=== PATIENT | male | born 1950 | race Caucasian/White ===

== ENCOUNTER 2017-11-29 22:51 | Emergency (ER) | payer MEDICARE, MEDICAID ==
[2017-11-29] MEDS ORDERED: Albuterol/Ipratropium NEB.SOL* Albuterol 2.5 MG/Ipratropium 0.5 MG 3 ML INH ONE (23:07)
[2017-11-29 23:26] LABS: ABS Basophils 0.1 10^3/ul (0-0.2); ABS Eosinophils 0.2 10^3/ul (0-0.6); ABS Monocytes 0.8 10^3/ul (0-0.8); ABS Neutrophils 6.9 10^3/ul (1.5-7.7); ABS Nucleated RBC 0 10^3/ul; Hematocrit 40 % (42-52); Hemoglobin 13.9 g/dl (14.0-18.0); Mean Corpuscular HGB Conc 34 g/dl (31-36); Mean Corpuscular Hemoglobin 35 pg (27-31); Mean Corpuscular Volume 101 fL (80-94); Mean Platelet Volume 7.3 um3 (7.4-10.4); Nucleated Red Blood Cells % 0; Platelet Count 254 10^3/ul (150-450); Red Blood Count 4.02 10^6/ul (4.0-5.4); Red Cell Distribution Width 14 % (10.5-15)
[2017-11-29 23:37] LABS: INR 0.89 (0.77-1.02)
[2017-11-29] MEDS ORDERED: hydrALAZINE IV* 20 MG/ML VIAL IV SLOW PU ONE (23:41)
[2017-11-30] MEDS ORDERED: Levofloxacin TAB* 250 MG PO ONE (00:15)
[2017-11-30] MEDS ORDERED: methylPREDNISolone 125 MG* 2 ML VIAL IV ONE (00:15)
[2017-11-30] MEDS ORDERED: Ketorolac INJ* 30 MG/ML 1 ML VIAL IV PUSH ONE (01:02)
[2017-11-30] MEDS ORDERED: Albuterol 2.5 MG/3 ML NEB.SOL* (0.083%) ONE (01:11)
[2017-11-30] MEDS: Albuterol 2.5 MG/3 ML NEB.SOL* (0.083%) INH SCH ×2 (01:17→01:47)
[2017-11-30] MEDS ORDERED: Iohexol 300* (CONTRAST) 10 ML SDV IV ONE (01:51)
--- NOTE | 2017-11-30 02:59 | ED ---
Estuardo Louise Rebecca, scribed for Yoko Gutierres MD on 11/29/17 at 2308 . Back Pain - HPI Summary HPI Summary: Pt is a 67 y/o M BIBA who presents to ED c/o bilateral flank pain. Sx have been present for 3 days and is currently moderate, ranked 5/10. Sx aggravated and alleviated by nothing, unchanged by cough. Additionally c/o chronic cough. Denies fever. PMHx COPD. - History of Current Complaint Chief Complaint: EDFlankPain Stated Complaint: ABD PAIN Time Seen by Provider: 11/29/17 23:02 Hx Obtained From: Patient Onset/Duration: Lasting Days - 3 days, Still Present Back Pain Location: Is Discrete @ - Bilateral flank Severity Currently: Moderate Pain Intensity: 5 Pain Scale Used: 0-10 Numeric Aggravating Symptom(s): Nothing Alleviating Symptom(s): Nothing Associated Signs And Symptoms: Positive: Flank Pain - Bilateral - Allergies/Home Medications Allergies/Adverse Reactions: Allergies Allergy/AdvReac Type Severity Reaction Status Date / Time No Known Allergies Allergy Verified 04/16/15 13:51 Home Medications: Home Medications Fluticasone-Salmeterol 250-50* [Advair Diskus 250-50*] 1 puff INH BID 11/30/17 [ History Confirmed 11/30/17] Rosuvastatin Calcium [Rosuvastatin Calcium] 5 mg PO DAILY 11/30/17 [History Confirmed 11/30/17] PMH/Surg Hx/FS Hx/Imm Hx Endocrine/Hematology History: Denies: Hx Diabetes Cardiovascular History: Reports: Hx Angina, Other Cardiovascular Problems/ Disorders - SMALL AORTIC ANEURYSM Denies: Hx Hypertension Respiratory History: Reports: Hx Chronic Obstructive Pulmonary Disease (COPD) History: Denies: Hx Renal Disease - Surgical History Surgery Procedure, Year, and Place: Left sided inguinal hernia repair as a child Infectious Disease History: No Infectious Disease History: Denies: Traveled Outside the [place] in Last 30 Days - Family History Known Family History: Positive: Cardiac Disease, Other - Stroke - Social History Alcohol Use: Occasionally Substance Use Type: Reports: None Smoking Status (MU): Heavy Every Day Tobacco Smoker Type: Cigarettes Have You Smoked in the Last Year: Yes Review of Systems Negative: Fever Positive: Cough Positive: flank pain - Bilateral All Other Systems Reviewed And Are Negative: Yes Physical Exam - Summary Physical Exam Summary: VITAL SIGNS: Reviewed. GENERAL: ~Patient is a well-developed and nourished male who is lying comfortable in the stretcher. Patient is not in any acute respiratory distress. HEAD AND FACE: No signs of trauma. No ecchymosis, hematomas or skull depressions. No sinus tenderness. EYES: PERRLA, EOMI x 2, No injected conjunctiva, no nystagmus. EARS: Hearing grossly intact. Ear canals and tympanic membranes are within normal limits. MOUTH: Oropharynx within normal limits. NECK: Supple, trachea is midline, no adenopathy, no JVD, no carotid bruit, no c- spine tenderness, neck with full ROM. CHEST: Symmetric, no tenderness at palpation LUNGS: Bilateral expiratory wheezes in the bases. No crackles. CVS: Regular rate and rhythm, S1 and S2 present, no murmurs or gallops appreciated. ABDOMEN: Soft, non-tender. No signs of distention. No rebound no guarding, and no masses palpated. Bowel sounds are normal. EXTREMITIES: FROM in all major joints, no edema, no cyanosis or clubbing. NEURO: Alert and oriented x 3. No acute neurological deficits. Speech is normal and follows commands. SKIN: Dry and warm Triage Information Reviewed: Yes Vital Signs On Initial Exam: Initial Vitals Temp Pulse Resp BP Pulse Ox 98.6 F 104 20 195/107 97 11/29/17 22:52 11/29/17 22:52 11/29/17 22:52 11/29/17 22:52 11/29/17 22:52 Vital Signs Reviewed: Yes Diagnostics - Vital Signs Vital Signs Temp Pulse Resp BP Pulse Ox 11/29/17 22:52 98.6 F 104 20 195/107 97 - Laboratory Result Diagrams: 11/29/17 23:13 11/29/17 23:13 Lab Statement: Any lab studies that have been ordered have been reviewed, and results considered in the medical decision making process. - Radiology CXR Radiology Interpretation Completed By: ED Physician - Hyperinflation, consistent with COPD. Pending official report. - CT CT Chest/Abd/Pel CT Interpretation Completed By: Radiologist - Chest: 1.7 cm nodule suprahilar left upper lobe and additional 5 mm left upper lobe nodule nore inferiorly, advise followup. Suboptimal slice thickness for PE evaluation, but no large central or proximal segmental PE. No aortic dissection or aneurysm. No pneumonia or pleural effusions. Emphysematous changes. Scarring bilateral apices. Abdomen/Pelvis: No bowel obstruction, colitis, free fluid or free air. Normal appendix. Unremarkable pancreas and gallbladder. Punctate stone right kidney. No visible ureteral or bladder stones and no hydronephrosis. Enlarged prostate. ED physician reviewed this report. Pending official report. - EKG 2317 Cardiac Rate: NL - 82 bpm EKG Rhythm: Sinus Rhythm EKG Interpretation: LAFB. Normal axis, no ischemic changes. Re-Evaluation - Re-Evaluation First Eval Re-Evaluation Time: 02:43 Change: Improved Comment: Pt is doing well. Discussed results and D/C plan. Back Pain Course/Dx - Course Assessment/Plan: Pt is a 67 y/o M BIBA who presents to ED c/o bilateral flank pain for 3 days, currently moderate, ranked 5/10. Sx unchanged by cough. Additionally c/o chronic cough. Denies fever. PMHx COPD. CXR shows hyperinflation, consistent with COPD. EKG is sinus rhythm with LAFB. CT chest/ abd/pel impression above. Blood work was done, with results including a WBC of 12.0, D-dimer <200, and troponin of 0.00. In the ED course, pt received a duoneb , apresoline, toradol, Levaquin and solu-medrol which improved sx. Pt will be D/ C to home with Dx of COPD, muscle pain, bronchitis, and pulmonary nodule with a follow up with his PCP. Pt informed of pulmonary nodules and told of the importance of followup. - Diagnoses Provider Diagnoses: COPD (chronic obstructive pulmonary disease), Muscle pain, Bronchitis, Pulmonary nodule Discharge - Sign-Out/Discharge Documenting (check all that apply): Discharge/Admit/Transfer - Discharge - Discharge Plan Condition: Stable Disposition: HOME Patient Education Materials: Acute Bronchitis (ED), COPD (Chronic Obstructive Pulmonary Disease) (ED), Musculoskeletal Pain (ED), Pulmonary Nodules (ED) Referrals: Bobby Lowe MD [Primary Care Provider] - 3 Days Additional Instructions: RETURN TO ED FOR ANY NEW OR WORSENING SYMPTOMS. The documentation as recorded by the Estuardo nieves Rebecca accurately reflects the service I personally performed and the decisions made by , Yoko Gutierres MD.
[2017-11-30 03:01] VITALS: BP 154/82
--- NOTE | 2017-11-30 07:40 | RAD ---
INDICATION: Shortness of breath. COMPARISON: Comparison is made with prior study from February 15, 2016. TECHNIQUE: A portable view of the chest was obtained. FINDINGS: Cardiac and mediastinal contours appear to be within normal limits. The lungs are hyperinflated and clear. No pleural effusion is seen. IMPRESSION: FINDINGS CONSISTENT WITH COPD, NO EVIDENCE FOR ACUTE FINDING.
--- NOTE | 2017-11-30 08:13 | RAD ---
INDICATION: Chest and abdominal pain COMPARISON: CTA chest March 13, [address] urogram April 16, 2015 TECHNIQUE: Multidetector CT images of the chest, abdomen and pelvis were obtained from the lung apices to the ischial tuberosities following the injection of 91 ML Omnipaque 300. The patient received oral contrast as well.. CHEST: The lungs exhibit diffuse centrilobular emphysematous changes. At the right middle lobe there is a pulmonary nodule measuring 7 x 3 mm (axial image 43). At the left upper lobe (axial image 29) there is a 4 mm pulmonary nodule. Within the left upper lobe immediately posterior adjacent to the hilum there is a focus of density measuring 1.2 x 1.8 cm in the axial plane with surrounding groundglass opacification. There are no large pleural effusions. There is no mediastinal or hilar lymphadenopathy. The heart and major vascular structures are grossly normal in appearance. ABDOMEN & PELVIS: The liver, spleen, pancreas and adrenal glands are grossly normal in appearance. The gallbladder is normal. At the right lower pole there is a nonobstructing 3 mm calcification. Otherwise the kidneys are normal in appearance without focal mass, calcification or signs of hydronephrosis. On the delayed phase images contrast is symmetrically and promptly excreted. Evaluation of the gastrointestinal tract is limited without oral contrast.. The small and large bowel are not distended. The appendix measures just under 6 mm in diameter (coronal image 42 and axial image 50). There are no periappendiceal inflammatory changes characteristic of acute appendicitis. The gas and stool-filled colon does not exhibit any discernible inflammatory changes. There is no gross retroperitoneal or mesenteric lymphadenopathy. The prostate is mildly enlarged measuring 4.6 x 5.9 cm in the axial plane and 3.9 cm in the cephalocaudal projection. The abdominal aorta is normal in caliber. There is mixed attenuation atherosclerosis at the lower abdominal aorta extending into the iliac arteries that becomes more coarsely calcified at the distal aorta and common iliac arteries. These attenuation atherosclerosis is seen at the bilateral femoral arteries. There is nonspecific straightening of the thoracic and lumbar spine. Degenerative changes of the lower thoracic spine include loss of intervertebral disc height. Similar degenerative changes are seen at the lumbar spine to a greater severity including endplate sclerosis, vacuum disc phenomenon and marginal osteophyte formation. There is a small degree of levoconvex curvature with the apex at the L2/L3 intervertebral disc space.. There are no sinister bone lesions. IMPRESSION: 1. Immediately adjacent to the posterior left hilum is a parenchymal nodule measuring 1.2 x 1.8 cm in the axial plane with an additional 4 mm pulmonary nodule in the left upper lobe and 5 mm pulmonary nodule in the right middle lobe. Infectious or inflammatory etiologies are within the differential, but considering the patient's apparent smoking history, neoplasm is also considered. 2. Nonobstructive 3 mm right lower pole renal calculus. 3. No CT apparent acute inflammatory change of the gastrointestinal tract. 4. There is mixed attenuation atherosclerotic disease involving the lower abdominal aorta and extending into the iliac arteries potentially causing arterial insufficiency. Please correlate to signs and symptoms of hip/buttock and/or lower extremity claudication. 5. Additional chronic and degenerative changes as described in the body the report.
== END 2017-11-30 03:03 | disposition home or self-care (01) ==
LOC: ED 22:51
DX: J44.9 Chronic obstructive pulmonary disease, unspecified (principal); R10.84 Generalized abdominal pain; F17.210 Nicotine dependence, cigarettes, uncomplicated; R05 Cough
CPT/HCPCS: 36415; 71045; 71260; 74177; 80053; 83605; 83735; 84484; 85025; 85379; 85610; 85730; 86140; 87040; 93005; 96374; 96375; 99284; A9270-GY; J1885; J2930; Q9967